=== PATIENT | female | born 1995 | race Two or more races ===

== ENCOUNTER 2021-04-29 11:05 | Emergency (ER) | payer BC, OTHER ==
[~2021-04-29] VITALS: Ht 154.9 cm; Wt 40.8 kg
[2021-04-29 11:28] VITALS: BP 119/59
[2021-04-29] MEDS ORDERED: IBUP600T27 PO (12:09)
== END 2021-04-29 12:26 | disposition home or self-care (01) ==
LOC: ER 11:05
DX: S63.91XA Sprain of unspecified part of right wrist and hand, initial encounter (principal); S60.222A Contusion of left hand, initial encounter; W18.00XA Striking against unspecified object with subsequent fall, initial encounter; Y93.23 Activity, snow (alpine) (downhill) skiing, snowboarding, sledding, tobogganing and snow tubing; Y92.89 Other specified places as the place of occurrence of the external cause; Y99.8 Other external cause status
CPT/HCPCS: 73110; 73130